=== PATIENT | male | born 1970 | race Caucasian/White ===

== ENCOUNTER 2019-12-23 16:03 | Inpatient (IN) | payer BC ==
[~2019-12-23] VITALS: Ht 160 cm; Wt 76.9 kg
[2019-12-23 16:18] VITALS: Ht 160 cm; Wt 76.9 kg
[2019-12-23 16:28] LABS: UA SPECIFIC GRAVITY 1.015 (1.005-1.035); microscopic required? YES; urine erythrocyte NEGATIVE (NEGATIVE)
[2019-12-23 16:33] LABS: CALCIUM 9.3 mg/dL (8.5-10.1); CARBON DIOXIDE 17.9 mmol/L (21-32); CHLORIDE SERUM 89 mmol/L (98-107); CREATININE SERUM 1.2 mg/dL (0.7-1.3); GFR1 > 60 mL/min; GLUCOSE SERUM 152 mg/dL (74-106); POTASSIUM SERUM 3.8 mmol/L (3.5-5.1); SODIUM SERUM 127 mmol/L (136-145)
[2019-12-23 16:35] LABS: AMPHETAMINE QUAL UR NONE DETECTED (See below)
[2019-12-23 16:37] LABS: ALBUMIN 4.4 g/dL (3.4-5.0); ALKALINE PHOSPHATASE 67 U/L (46-116); ALT/SGPT 31 U/L (16-63); AST/SGOT 25 U/L (15-37); BILIRUBIN TOTAL 0.4 mg/dL (0.20-1.00); TOTAL PROTEIN, SERUM 7.4 g/dL (6.4-8.2)
[2019-12-23 16:45] LABS: BASOPHIL % 0.6 % (0-2); PLATELET COUNT 245 x10^3mcL (130-400)
[2019-12-23] MEDS ORDERED: CARBAMAZEPINE300 M1 PO (17:59)
[2019-12-23] MEDS ORDERED: LOSARTAN POTASS1 TAB PO (17:59)
[2019-12-23 20:13] LABS: CHOLESTEROL/HDL RATIO 3.5; MAGNESIUM 2.2 mg/dL (1.8-2.4); PHOSPHOROUS 4.4 mg/dL (2.5-4.9)
[2019-12-23 20:14] VITALS: BP 124/75
[2019-12-24 06:28] VITALS: BP 110/64
[2019-12-24 08:59] LABS: BASOPHIL % 0.2 % (0-2); PLATELET COUNT 188 x10^3mcL (130-400); RED CELL DISTRIBUTION WIDTH 13.1 % (11.5-14.5)
[2019-12-24 09:00] VITALS: BP 115/73
[2019-12-24 09:22] LABS: CALCIUM 8.9 mg/dL (8.5-10.1); CARBON DIOXIDE 25.1 mmol/L (21-32); CHLORIDE SERUM 103 mmol/L (98-107); CREATININE SERUM 0.9 mg/dL (0.7-1.3); GFR1 > 60 mL/min; GLUCOSE SERUM 161 mg/dL (74-106); POTASSIUM SERUM 3.6 mmol/L (3.5-5.1); SODIUM SERUM 136 mmol/L (136-145)
[2019-12-24] MEDS ORDERED: TEG100 PO (12:15)
[2019-12-24 12:36] VITALS: BP 102/52
[2019-12-24 13:58] VITALS: BP 102/52
== END 2019-12-24 17:56 | disposition home or self-care (01) | DRG 101 ==
LOC: ED 16:03 → DU 18:42
PROVIDERS: Emergency Medicine; Internal Medicine; ADMIT Family Medicine; ATTEND Family Medicine
DX: G40.409 Other generalized epilepsy and epileptic syndromes, not intractable, without status epilepticus (principal); E87.1 Hypo-osmolality and hyponatremia; I10 Essential (primary) hypertension; G40.909 Epilepsy, unspecified, not intractable, without status epilepticus; E87.8 Other disorders of electrolyte and fluid balance, not elsewhere classified; Z79.899 Other long term (current) drug therapy
CPT/HCPCS: 83880; G0378; G0480; J2060; J7030; Q0092